=== PATIENT | female | born 1990 | race Caucasian/White ===

== ENCOUNTER 2016-09-10 20:57 | Emergency (ER) | payer SELFPAY | END 2016-09-10 20:58 | disposition home or self-care (01) | LOC: ER 20:57 | DX: S16.1XXA Strain of muscle, fascia and tendon at neck level, initial encounter (principal); S39.012A Strain of muscle, fascia and tendon of lower back, initial encounter; Z88.0 Allergy status to penicillin; W19.XXXA Unspecified fall, initial encounter | CPT/HCPCS: 72050; 72100; 99283; A9270-GY ==